=== PATIENT | female | born 1965 | race Caucasian/White ===

== ENCOUNTER → 2020-03-17 10:43 | Outpatient (CLI) | payer BC, SELFPAY | PROVIDERS: PCP Family Medicine; Visit Provider Nurse Practitioner | DX: Z20.828 Contact with and (suspected) exposure to other viral communicable diseases (principal); U07.1 COVID-19 | CPT/HCPCS: U0003 ==

== ENCOUNTER → 2020-11-17 08:47 | Outpatient (CLI) | payer BC, SELFPAY ==
[2020-11-17 12:03] LABS: Coronavirus 19 IgG Antibody Negative (Negative); Coronavirus 19 IgM Antibody Negative (Negative)
== END ==
PROVIDERS: Visit Provider Nurse Practitioner
DX: Z11.52 Encounter for screening for COVID-19 (principal)
CPT/HCPCS: 36415; 86328